=== PATIENT | male | born 1960 | race Caucasian/White ===

== ENCOUNTER → 2021-10-21 | Outpatient (CLI) | payer OTHER ==
[~2021-10-21] MED LIST: MSIR30TA PO
== END ==
LOC: M LABSMTC 10:45
PROVIDERS: ATTEND Anesthesiology
DX: Z11.52 Encounter for screening for COVID-19 (principal)

== ENCOUNTER → 2021-10-22 | Outpatient (CLI) | payer OTHER ==
[~2021-10-22] MED LIST changes: +FENT1DIS14 TD; +MORP1SOL PO; +ONDA-84 PO
== END ==
LOC: M PLARAD 12:08
PROVIDERS: ATTEND Specialist
DX: C25.0 Malignant neoplasm of head of pancreas (principal)
CPT/HCPCS: 78815; A9552

== ENCOUNTER → 2021-10-23 | Outpatient (CLI) | payer OTHER ==
[~2021-10-23] MED LIST changes: +ONDANSETRON 4MG ORAL DISINTEGRATING TAB PO ONE
== END ==
LOC: M ONCR 09:57
PROVIDERS: ATTEND General Practice
DX: C25.0 Malignant neoplasm of head of pancreas (principal); R52 Pain, unspecified; R64 Cachexia; F17.210 Nicotine dependence, cigarettes, uncomplicated; Z80.42 Family history of malignant neoplasm of prostate; Z79.899 Other long term (current) drug therapy

== ENCOUNTER 2021-10-30 12:49 | Outpatient (RCR) | payer OTHER ==
[~2021-10-30 12:49] MED LIST changes: -ONDANSETRON 4MG ORAL DISINTEGRATING TAB PO ONE
== END 2021-11-11 ==
LOC: M ONCR 12:49
PROVIDERS: ATTEND General Practice
DX: C25.8 Malignant neoplasm of overlapping sites of pancreas (principal)